=== PATIENT | female | born 1990 ===

== ENCOUNTER 2021-08-28 20:35 | Outpatient (CLI) | payer MEDICAID ==
[2021-08-28 22:40] VITALS: BP 101/58
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
== END 2021-08-28 22:30 | disposition home or self-care (01) ==
LOC: TRG 20:35 → APU 20:43 → TRG 22:30
PROVIDERS: ATTEND Obstetrics & Gynecology
DX: Z34.92 Encounter for supervision of normal pregnancy, unspecified, second trimester (principal); Z3A.24 24 weeks gestation of pregnancy
CPT/HCPCS: 76815; 76816

== ENCOUNTER 2021-11-11 18:10 | Outpatient (CLI) | payer MEDICAID ==
[2021-11-11 18:46] VITALS: BP 99/62
[2021-11-11] MEDS ORDERED: LACTATED RINGERS 500 ML IV ONE (18:54)
[2021-11-11 19:37] LABS: Mucus,Urine 1+ /HPF
[2021-11-11 20:39] LABS: Bilirubin,Urine Negative (Negative); Blood,Urine Negative (Negative); Color,Urine Yellow (Yellow); PH,Urine 7.5 (5.0-7.0); Protein,Urine <15 mg/dL mg/dL (Negative); Urobilinogen,Urine < 2.0 mg/dL (<2.0)
== END 2021-11-11 20:04 | disposition left against medical advice (07) ==
LOC: TRG 18:10 → APU 18:12 → TRG 20:04
PROVIDERS: ATTEND Obstetrics & Gynecology
DX: O26.893 Other specified pregnancy related conditions, third trimester (principal); M54.50 Low back pain, unspecified; R10.9 Unspecified abdominal pain; Z3A.35 35 weeks gestation of pregnancy
CPT/HCPCS: 59025; 81001; 87086

== ENCOUNTER 2021-12-01 11:12 | Inpatient (IN) | payer MEDICAID ==
[2021-12-01] MEDS ORDERED: ACETAMINOPHEN 325 MG TAB PO PRN ×2 (14:33→19:08)
[2021-12-01] MEDS ORDERED: NalbUPHINE 10 MG/1 ML INJ IV PRN (14:33)
[2021-12-01] MEDS ORDERED: fentaNYL 100 MCG/2 ML INJ IV PRN (14:33)
[2021-12-01] MEDS ORDERED: METOCLOPRAMIDE 10 MG/2 ML INJ IV ONE (14:38)
[2021-12-01] MEDS ORDERED: FAMOTIDINE 20 MG/2 ML INJ IV ONE (14:38)
[2021-12-01] MEDS ORDERED: BICITRA ORAL LIQD 30ML PO ONE (14:38)
[2021-12-01] MEDS ORDERED: OXYTOCIN DRIP 30 UNITS/500 ML BAG IV SCH ×2 (15:00→20:00)
[2021-12-01] MEDS: LACTATED RINGERS 1,000 ML IV SCH ×2 (15:10→15:47)
[2021-12-01 15:31] LABS: Basophils % (Auto) 0.2 % (0.0-1.8); Eosinophils % (Auto) 0.1 % (0.0-4.3); Hematocrit 37.6 % (30.3-42.9); Hemoglobin 12.7 gm/dl (10.1-14.3); Lymphocytes # (Auto) 1.1 K/mm3 (1.2-5.4); Lymphocytes % (Auto) 12.7 % (13.4-35.0); Mean Corpuscular HGB Conc 34 % (30-34); Mean Corpuscular Volume 92 fl (79-97); Monocytes % (Auto) 11.2 % (0.0-7.3); Platelet Count 226 K/mm3 (140-440); Red Blood Count 4.11 M/mm3 (3.65-5.03); Red Cell Distribution Width 13.4 % (13.2-15.2)
--- NOTE | 2021-12-01 16:31 | History and Physical Report ---
History of Present Illness Date of examination: 12/01/21 Date of admission: 12/01/21 Chief complaint: Active labor. History of present illness: [place] 12/24/21. Previous . Past History Past Medical History: no pertinent history Past Surgical History: section - Obstetrical History Expected Date of Delivery: 12/24/21 Actual Gestation: 36 Week(s) 5 Day(s) : 3 Para: 2 Medications and Allergies Allergies Allergy/AdvReac Type Severity Reaction Status Date / Time No Known Allergies Allergy Verified 02/08/13 11:14 Home Medications Medication Instructions Recorded Confirmed Last Taken Type Acetaminophen/Dp-Hydramine 1 each PO PRN 02/05/18 02/05/18 01/24/18 00:00 History [[facility]iana[facility] Pm Powder Packet] Ferrous Sulfate [Feosol 325 MG tab] 325 mg PO BID #60 tablet 02/06/18 Unknown Rx HYDROcodone/APAP 5-325 [Mcdonough 1 each PO Q6HR PRN #30 tablet 02/06/18 Unknown Rx 5/325] Ibuprofen [Motrin] 800 mg PO Q8HR PRN #30 tablet 02/06/18 Unknown Rx Vit Calc,Iron,Folic 1 each PO DAILY #30 tablet 02/06/18 Unknown Rx [ Vitamins] Active Meds: Active Medications Acetaminophen (Acetaminophen 325 Mg Tab) 650 mg PO Q4H PRN PRN Reason: Pain, Mild (1-3) Fentanyl (Fentanyl 100 Mcg/2 Ml Inj) 100 mcg IV Q2H PRN PRN Reason: Pain,Severe (7-10) LABOR PAIN Last Admin: 12/01/21 15:46 Dose: 100 mcg Lactated Ringer's (Lactated Ringers) 1,000 mls @ 2,250 mls/hr IV PREOP TANA Stop: 12/02/21 15:12 Last Admin: 12/01/21 15:47 Dose: 2,250 mls/hr Oxytocin/Sodium Chloride (Pitocin/Ns 30 Unit/500ml) 30 units in 500 mls @ 0 mls/hr IV TITR TANA; Protocol Stop: 12/02/21 15:00 Cefazolin Sodium 3 gm/ Sodium (Chloride) 100 mls @ 100 mls/30 min IV PREOP NR; Protocol Stop: 12/01/21 23:59 Nalbuphine HCl (Nalbuphine 10 Mg/1 Ml Inj) 10 mg IV Q2H PRN PRN Reason: Pain, Moderate (4-6) Review of Systems All systems: negative Genitourinary: contractions - Vital Signs Vital signs: Vital Signs Pulse Pulse Ox 127 H 98 12/01/21 12:01 12/01/21 12:01 Temp Pulse Resp BP Pulse Ox 99.1 F 89 111/70 100 12/01/21 15:22 12/01/21 16:23 12/01/21 15:14 12/01/21 16:23 - Physical Exam Lungs: Positive: Normal air movement Abdomen: Positive: distention Uterus: Positive: enlarged, normal contour Extremities: Deep Tendon Reflex Grade: Normal +2 - Obstetrical FHR: auscultation normal Cervical Dilatation: 4 Results Result Diagrams: 12/01/21 14:52 Abnormal lab results 12/01/21 Range/Units 14:52 Lymph % (Auto) 12.7 L (13.4-35.0) % Faulk % (Auto) 11.2 H (0.0-7.3) % Lymph # (Auto) 1.1 L (1.2-5.4) K/mm3 Faulk # (Auto) 1.0 H (0.0-0.8) K/mm3 Seg Neutrophils % 75.8 H (40.0-70.0) % All other labs normal. Assessment and Plan - Patient Problems (1) Active labor Current Visit: Yes Status: Acute (2) 36 to 37 weeks gestation of Current Visit: No Status: Acute (3) Previous delivery affecting Current Visit: Yes Status: Acute Plan to address problem: for repeat montrell.
[2021-12-01] MEDS ORDERED: ePHEDrine SULFATE 50 MG/1 ML INJ ONE (17:15)
[2021-12-01] MEDS ORDERED: SODIUM CHLORIDE 0.9% IRR 1,500 ML BOTTLE IR ONE (17:35)
[2021-12-01] MEDS ORDERED: WATER FOR IRRIG STERILE 1,500 ML BOTTLE IR ONE (17:35)
[2021-12-01] MEDS ORDERED: PHENYLEPHRINE/NS 1,000 MCG/10 ML SYRINGE (OR USE) IV ONE (17:41)
[2021-12-01] MEDS ORDERED: SODIUM CHLORIDE 0.9% 100 ML ONE (17:41)
[2021-12-01] MEDS ORDERED: ONDANSETRON 4 MG/2 ML INJ ONE (17:41)
[2021-12-01] MEDS ORDERED: BUPIVACAINE/PF (0.5%) 5 MG/1 ML 30 ML VIAL INFILTRATI ONE (17:42)
[2021-12-01] MEDS ORDERED: ONDANSETRON 4 MG/2 ML INJ IV PRN ×3 (19:08→19:12)
[2021-12-01] MEDS ORDERED: NALOXONE 0.4 MG/1 ML INJ IV PRN ×3 (19:08→19:12)
[2021-12-01] MEDS ORDERED: IBUPROFEN 800 MG TAB PO PRN (19:08)
[2021-12-01] MEDS ORDERED: WITCH HAZEL/ GLYCERIN PAD TP PRN (19:08)
[2021-12-01] MEDS ORDERED: KETOROLAC 30 MG/1 ML INJ IV PRN (19:08)
[2021-12-01] MEDS ORDERED: MAGNESIUM HYDROXIDE (MOM) ORAL LIQD UDC PO PRN (19:08)
[2021-12-01] MEDS ORDERED: PROMETHAZINE 25 MG RECT SUPP PR PRN ×3 (19:08→19:12)
[2021-12-01] MEDS ORDERED: LANOLIN/ZINC/DIMETHICONE (LANSINOH) 7 GM TP PRN (19:08)
[2021-12-01] MEDS ORDERED: MORPHINE 2 MG/1 ML INJ IV PRN (19:08)
[2021-12-01] MEDS ORDERED: HYDROmorphone 1 MG/1 ML INJ IV PRN ×2 (19:11→19:12)
[2021-12-01] MEDS ORDERED: PROMETHAZINE 25 MG TAB PO PRN ×2 (19:11→19:12)
[2021-12-01] MEDS ORDERED: MORPHINE 4 MG/1 ML INJ IV PRN (19:12)
--- NOTE | 2021-12-01 19:15 | Operative Report ---
Operative Report Operative Report: Date of surgery: 12/02/2019 Preoperative diagnoses: Active labor, 36+5 weeks gestation, previous section Postoperative diagnoses: The same. Operation: Lower segment transverse delivery Surgeon:Josselin Salazar MD Window Shade Estimator: Curt BROWER Anesthesia: Spinal block Estimated blood loss: 700 mL Complications: None Findings: Live baby girl vertex, 6 pounds 5 ounces, Apgars 8/9. The ovaries fallopian tubes and the uterus were all unremarkable gravid structures. Procedure in detail: The patient was taken to the operating room and given a spinal block. Patient was placed in the straight supine position and a Reilly catheter was inserted. The patient was prepped in the abdomen. The drapes were placed. A timeout was done. With the go ahead from the dump truck driver, a Pfannenstiel incision was made. This incision was carried across the subcutaneous layer to the fascia which was also divided transversely. The recti abdominis muscle flaps were stripped from the fascia using a combination of blunt and sharp dissections. The muscles were in the midline to gain access to the anterior parietal peritoneum which was divided after excluding any underlying viscera. The access to the peritoneal cavity was then widened by manual stretching. The bladder blade was applied. The utero vesicle peritoneal flap was divided transversely allowing the bladder to be displaced caudally. The uterine incision was placed in the lower segment transversely. The uterine incision was carried to the decidual layer. The uterine incision was extended on both sides using the bandage scissors. The amniotic sac was ruptured with clear fluid. The head was lifted out of the false maternal pelvis and delivered through the incision using fundal pressure. The airways were bulb suctioned beginning with the mouth. Continuing fundal pressure combined with traction on the mandibular processes of the jaw delivered the rest of the baby. The umbilical cord was double clamped and divided. The baby was carefully transferred to the pediatric team. The placenta was manually removed from the uterine cavity. The uterine cavity was explored and was empty of any placental remnants. The uterine incision was repaired in 2 layers with #1 Vicryl. The surgical line on the uterus was hemostatic. Blood and clots were cleared from the peritoneal cavity. The anterior parietal peritoneum was repaired with #1 Vicryl. The fascia was repaired with #1 Vicryl. The subcutaneous layer was made hemostatic using the Bovie before the skin was closed subcuticularly with 4-0 Vicryl. There were no complications. The estimated blood loss was 700 mL. All sponges and instrument counts were correct. Patient was safely transferred to the recovery room.
--- NOTE | 2021-12-01 19:16 | Anesthesia Day of Surgery ---
Anesthesia Day of Surgery - Day of Surgery Patient Examined: Yes Patient H&P Reviewed: Yes Patient is NPO: Yes Beta Blockers: No Cardiac Clearance: No Pulmonary Clearance: No Albre's Test: N/A
--- NOTE | 2021-12-01 19:16 | Anesthesia Consultation ---
Anesthesia Consult and Med Hx Date of service: 12/01/21 - Airway Anesthetic Teeth Evaluation: Good ROM Head & Neck: Adequate Mental/Hyoid Distance: Adequate Mallampati Class: Class II Intubation Access Assessment: Probably Good - Pulmonary Exam CTA: Yes - Cardiac Exam Cardiac Exam: RRR - Pre-Operative Health Status ASA Pre-Surgery Classification: ASA2 Proposed Anesthetic Plan: Spinal Nerve Block: Edward Tap - Pulmonary Hx Smoking: No Hx Asthma: No Hx Respiratory Symptoms: No SOB: No COPD: No Home Oxygen Therapy: No Hx Pneumonia: No Hx Sleep Apnea: No - Cardiovascular System Hx Hypertension: No Hx Coronary Artery Disease: No Hx Heart Attack/AMI: No Hx Angina: No Hx Percutaneous Transluminal Coronary Angioplasty (PTCA): No Hx Cardia Arrhythmia: No Hx Pacemaker: No Hx Internal Defibrillator: No Hx Valvular Heart Disease: No Hx Heart Murmur: No Hx Peripheral Vascular Disease: No - Central Nervous System Hx Neuromuscular Disorder: No Hx Seizures: No CVA: No Hx Back Pain: No Hx Psychiatric Problems: No - Gastrointestinal Hx Ulcer: No Hx Gastroesophageal Reflux Disease: No - Endocrine Hx Renal Disease: No Hx End Stage Renal Disease: No Hx Cirrhosis: No Hx Liver Disease: No Hx Insulin Dependent Diabetes: No Hx Non-Insulin Dependent Diabetes: No Hx Thyroid Disease: No Hx Hypothyroidism: No Hx Hyperthyroidism: No - Hematic Hx Anemia: No Hx Sickle Cell Disease: No - Other Systems Hx Alcohol Use: No Hx Substance Use: No Hx Cancer: No Hx Obesity: No
--- NOTE | 2021-12-01 19:17 | Progress Note ---
Regional Anesthesia Block - Regional Anesthesia Block Start Time: 18:43 Stop Time: 18:48 Performed By:: MARCI MARQUIS Procedure: During the pre-op interview the patient agreed to and signed a consent for a TAP block for post surgical pain management. After her C/S was completed a time out was performed prior to the start of the procedure. The Trans Abdominal Plane was identified bilaterally via ultrasound. The skin was prepped bilaterally with chlorhexidine and a 22g stimuplex needle was advanced to the area between the internal oblique muscle and the trans abdominal plane. Marcaine 0.25% 30mlwas injected under ultrasound guidance on the left and right side. Negative aspiration every 5mL, There was no change in the patients heart rate or rhythm and the patient tolerated the procedure well. No apparent complications were observed.
--- NOTE | 2021-12-01 19:17 | Progress Note ---
Spinal Anesthesia Block - Spinal Anesthesia Block Start Time: 17:21 Stop Time: 17:27 Performed by:: MARCI MARQUIS Procedure: The patient was placed in a sitting position on the OR table and monitors applied. A timeout was performed immediately prior to the start of the procedure. The patient was Prepped and draped in a sterile fashion and the skin was localized with 3 mL 1% lidocaine at L[4]-L[5] interspace. An introducer was placed into the back between L4-L5 and a 25g spinal needle was advanced into the intrathecal space until clear, free flowing CSF was observed. 1.8cc of 0.75% hyperbaric bupivacaine + 0.5mcg Precedex was injected into the intrathecal space and the spinal needle was removed. The patient tolerated the procedure well and there were no immediate complications noted.
[2021-12-01] MEDS ORDERED: ceFAZolin/NS 1 GM/50 ML 1 GM/50 ML BAG IV SCH (20:00)
[2021-12-01] MEDS: MORPHINE 4 MG/1 ML INJ IV PRN (23:02)
[2021-12-01] MEDS: KETOROLAC 30 MG/1 ML INJ IV PRN (23:58)
[2021-12-02] MEDS ORDERED: LACTATED RINGERS 1,000 ML IV SCH (00:15)
[2021-12-02] MEDS: HYDROcodone/ACETAMINOPHEN 5-325 MG TAB PO PRN (04:04)
[2021-12-02] MEDS: KETOROLAC 30 MG/1 ML INJ IV PRN (05:01)
[2021-12-02] MEDS: MORPHINE 4 MG/1 ML INJ IV PRN ×3 (08:32→18:33)
[2021-12-02] MEDS: PRENATAL VIT27-FE FUMARATE-FOLIC ACID VIT TAB PO SCH (10:52)
[2021-12-02 11:02] LABS: Hematocrit 28.7 % (30.3-42.9); Hemoglobin 9.9 gm/dl (10.1-14.3)
--- NOTE | 2021-12-02 20:29 | Progress Note ---
Assessment and Plan A: POD 1 repeat csection Anemia pain P: Supplement with iron po continue routine PP care pain management anticipated discharge home in 24 hours Subjective - Subjective Date of service: 12/02/21 Principal diagnosis: Repeat csection Patient reports: appetite normal, voiding normally, flatus, pain poorly controlled (informed RN to give norco), ambulating normally Wallace: doing well Objective - Vital Signs Latest vital signs: Vital Signs Temp Pulse Resp BP BP Pulse Ox Pulse Ox 12/02/21 17:01 99.6 F 79 18 97/54 100 12/02/21 12:31 98.5 F 77 18 103/65 100 12/02/21 08:11 98.3 F 74 18 98/67 100 12/02/21 05:31 99 12/02/21 05:01 18 98 12/02/21 04:24 98.6 F 73 18 99/68 100 12/02/21 04:04 18 99 12/02/21 00:28 98 12/02/21 00:05 99.9 F H 81 18 99/61 97 12/01/21 23:58 18 100 12/01/21 23:30 99 12/01/21 23:02 18 99 12/01/21 21:10 98.6 F 90 18 99/66 100 Intake and Output 12/02/21 12/02/21 12/02/21 07:59 15:59 23:59 Intake Total 540 600 Output Total 1200 800 325 Balance -1200 -260 275 Intake: Oral 360 240 Intake, Free Water 180 360 Output: Urine 1200 800 325 Indwelling Catheter 600 Uretheral (Reilly) 600 Void 800 325 Other: Total, Intake Amount 240 240 Total, Output Amount 600 350 325 # Voids Void 2 1 - Exam Breasts: Present: deferred Cardiovascular: Present: Regular rate Lungs: Present: Clear to auscultation, Normal air movement Abdomen: Present: normal appearance Uterus: Present: firm, fundal height below umbilicus Extremities: Present: normal Deep Tendon Reflex Grade: Normal +2 Incision: Present: normal, dry, intact - Labs Labs: Abnormal lab results 12/02/21 Range/Units 10:22 Hgb 9.9 L (10.1-14.3) gm/dl Hct 28.7 L D (30.3-42.9) %
[2021-12-02] MEDS: oxyCODONE /ACETAMINOPHEN 5-325MG TAB PO PRN (21:28)
[2021-12-02] MEDS: IBUPROFEN 600 MG TAB PO PRN (23:48)
[2021-12-03] MEDS: oxyCODONE /ACETAMINOPHEN 5-325MG TAB PO PRN ×2 (01:53→05:58)
[2021-12-03] MEDS: PRENATAL VIT27-FE FUMARATE-FOLIC ACID VIT TAB PO SCH (10:27)
[2021-12-03] MEDS: HYDROcodone/ACETAMINOPHEN 5-325 MG TAB PO PRN (10:27)
[2021-12-03] MEDS: IBUPROFEN 600 MG TAB PO PRN (13:05)
--- NOTE | 2021-12-03 13:08 | Post Anesthesia Evaluation ---
- Post Anesthesia Evaluation Patient Participated: Yes Airway Patent: Yes Stable Respiratory Function: Yes Nausea/Vomiting: No Temp > 96.8F: Yes Pain Manageable: Yes Adequeate Hydration: Yes Anesthesia Complications: No Block Receding Appropriately: Yes Patient on Ventilator: No
--- NOTE | 2021-12-03 13:43 | Progress Note ---
Assessment and Plan A: POD #2 Asymptomatic Anemia P: Follow Routine PostOp Orders Increase Dietary Iron D/C home today per patient request RTO in 1 Week Subjective - Subjective Date of service: 12/03/21 Principal diagnosis: Repeat csection Patient reports: appetite normal, voiding normally, dizzy ambulation, flatus, bowel movement, ambulating normally Sidell: doing well, bottle feeding Objective - Vital Signs Latest vital signs: Vital Signs Temp Pulse Resp BP BP Pulse Ox Pulse Ox 12/03/21 08:10 97.5 F L 71 20 89/63 100 12/03/21 08:05 100 12/03/21 05:58 20 12/03/21 01:53 20 12/03/21 01:43 98.0 F 70 20 97/57 100 12/02/21 23:48 20 12/02/21 21:28 20 12/02/21 20:00 99 12/02/21 17:01 99.6 F 79 18 97/54 100 Intake and Output 12/02/21 12/03/21 12/03/21 22:59 06:59 14:59 Intake Total 840 240 120 Output Total 325 Balance 515 240 120 Intake: Oral 480 240 120 Intake, Free Water 360 Output: Urine 325 Void 325 Other: Total, Intake Amount 240 240 120 Total, Output Amount 325 # Voids Void 1 1 1 - Exam Breasts: Present: normal Cardiovascular: Present: Regular rate Lungs: Present: Clear to auscultation, Normal air movement Abdomen: Present: normal appearance, soft, normal bowel sounds Uterus: Present: normal, firm, fundal height below umbilicus Extremities: Present: normal Incision: Present: normal, dry, intact
--- NOTE | 2021-12-03 13:45 | Discharge Summary ---
Providers - Providers Date of Admission: 12/01/21 11:13 Date of discharge: 12/03/21 Attending physician: INOCENCIO SOLORZANO Primary care physician: INOCENCIO SOLORZANO Hospitalization Reason for admission: section Delivery: Procedure: repeat low transverse Episiotomy: none Laceration: none Incision: normal, dry, intact Other procedures: none complications: none Discharge diagnosis: IUP at term delivered baby: female Condition at discharge: Good Disposition: 01 HOME / SELF CARE / HOMELESS Plan - Provider Discharge Summary Activity: routine, no sex for 6 weeks, no heavy lifting 4 weeks, no strenuous exercise Diet: routine Instructions: routine Additional instructions: [] Smoking cessation referral if applicable(refer to patient education folder for contact #) [] Refer to [facility] Booklet Call your doctor immediately for: * Fever > 100.5 * Heavy vaginal bleeding ( >1 pad per hour) * Severe persistent headache * Shortness of breath * Reddened, hot, painful area to leg or breast * Drainage or odor from incision. * Keep incision clean and dry at all times and follow doctor's instructions regarding bathing/showering - Follow up plan Follow up: INOCENCIO SOLORZANO MD [Primary Care Provider] - 7 Days
[2021-12-03 16:52] VITALS: BP 90/60
== END 2021-12-03 17:58 | disposition home or self-care (01) | DRG 766 ==
LOC: TRG 11:12 → APU 11:13 → TRG 18:40 → OB 21:53
PROVIDERS: ADMIT Obstetrics & Gynecology; ATTEND Obstetrics & Gynecology
PROC: 10D00Z1 Extraction of Products of Conception, Low, Open Approach (ICD-10-PCS; principal; 2021-12-01)
PROC: 3E0T3BZ Introduction of Anesthetic Agent into Peripheral Nerves and Plexi, Percutaneous Approach (ICD-10-PCS; 2021-12-01)
DX: O34.211 Maternal care for low transverse scar from previous cesarean delivery (principal); Z37.0 Single live birth; Z3A.36 36 weeks gestation of pregnancy; Z20.822 Contact with and (suspected) exposure to COVID-19
CPT/HCPCS: 36415; 84112; 85014; 85018; 85025; 86850; 86900; 86901; 88307; G0378; J3490; J0690; J1885; J2270; J2370; J2405; J2765; J3010; J7120; U0003